=== PATIENT | female | born 1970 | race Caucasian/White ===

== ENCOUNTER 2023-07-28 10:33 | Outpatient (REF) | payer OTHER, SELFPAY ==
--- NOTE | ~2023-07-28 | XR_ITS ---
EXAMINATION: XR hand RT min 3V, XR hand LT min 3V CLINICAL INFORMATION: tenosynovitis COMPARISON: None TECHNIQUE: 3 views of the bilateral hands FINDINGS: LEFT HAND: No fracture or dislocation. Degenerative changes of the hand and wrist worst involving the first carpometacarpal joint where it is moderate with loss of joint space and subchondral cystic change and to a lesser extent the distal interphalangeal joints with degenerative spurring.. Soft tissues are unremarkable. RIGHT HAND: No fracture or dislocation. Mild degenerative changes of the distal interphalangeal and first metacarpophalangeal joints with degenerative spurring. No cortical erosion. Soft tissues are unremarkable. XR/XR hand LT min 3V IMPRESSION: 1. Moderate degenerative changes of the left hand and wrist. 2. Mild degenerative changes of the right hand.
--- NOTE | ~2023-07-28 | XR_ITS ---
EXAMINATION: XR hand RT min 3V, XR hand LT min 3V CLINICAL INFORMATION: tenosynovitis COMPARISON: None TECHNIQUE: 3 views of the bilateral hands FINDINGS: LEFT HAND: No fracture or dislocation. Degenerative changes of the hand and wrist worst involving the first carpometacarpal joint where it is moderate with loss of joint space and subchondral cystic change and to a lesser extent the distal interphalangeal joints with degenerative spurring.. Soft tissues are unremarkable. RIGHT HAND: No fracture or dislocation. Mild degenerative changes of the distal interphalangeal and first metacarpophalangeal joints with degenerative spurring. No cortical erosion. Soft tissues are unremarkable. XR/XR hand RT min 3V IMPRESSION: 1. Moderate degenerative changes of the left hand and wrist. 2. Mild degenerative changes of the right hand.
== END 2023-07-28 10:34 | disposition home or self-care (01) ==
LOC: HO.HOSX 10:33
PROVIDERS: Visit Provider Physical Medicine & Rehabilitation
DX: M65.4 Radial styloid tenosynovitis [de Quervain] (principal); M15.2 Bouchard's nodes (with arthropathy); G56.03 Carpal tunnel syndrome, bilateral upper limbs
CPT/HCPCS: 73130

== ENCOUNTER 2023-07-28 10:33 | Outpatient (AMB) | payer OTHER, SELFPAY ==
--- NOTE | 2023-07-28 10:39 | A.OFFVIS_ITS ---
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 Patient reports that she has had pain at the base of the thumb in both of her hands for many years now. The pain radiates from the base of the thumb to the elbow. She reports that she has significant weakness of the thumbs. The left hand is worse than the right. Denies numbness and tingling. No previous treatmnet. Allergies No Known Allergies Allergy (Verified 07/28/23 10:42) Medication List - Last Reconciled 07/28/23 by Trista García MD dextroamphetamine-amphetamine 20 mg ER (Adderall XR) 40 mg PO QDAY levothyroxine 125 mcg PO DAILY lisinopril 5 mg PO DAILY HPI HPI Comments History of Present Illness Details Chronic hand pain, pointing to base of thumb, left worse than right, but she is right handed. 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 Occasional numbness on base of thumb, none of fingertips. Drops things. Denies locking of thumb. 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, bilateral Surgical History (Updated 07/28/23 @ 10:45 by Yulissa Nielson CMA) Previous back surgery H/O: hysterectomy H/O thyroidectomy Social History (Updated 07/28/23 @ 10:45 by Yulissa Nielson CMA) Patient Tobacco Use Status: Never used Tobacco Current occupational status: employed Current occupation: Office Work - [employer] Review of Systems Const All systems reviewed & are unremarkable except as noted in HPI and below Physical Exam Vital Signs: BMI result Body Mass Index 24.9 Constitutional: Patient appears to be in no acute distress, well nourished and well developed. MSK: Inspection reveals appropriate head and neck positioning. Hawkin's test is negative. No joint effusion noted. No deformity noted. No intrinsic hand weakness noted. No atrophy noted. Twyla test mildly positive bilateral. Carpal compression test positive on wrist bilateral. Tinel sign positive at both wrists and elbows bilateral. Tender on left CMC joint. Dmitry nodes on DIP 2nd digit bilateral. Strength is 5/5 in all muscle groups tested. No increased tone noted. Neurological: Neurologic examination of the upper and lower extremities was nonfocal with intact sensation, muscle stretch reflexes and without focal motor deficits . Holder?s negative bilaterally. Gait is non-antalgic without loss of balance. Assessment & Plan Assessment & Plan (1) De Quervain's tenosynovitis, bilateral: Code(s): M65.4 - Radial styloid tenosynovitis [de Quervain] (2) Dmitry nodes (DJD hand): Code(s): M15.2 - Dmitry's nodes (with arthropathy) (3) Carpal tunnel syndrome on both sides: Code(s): G56.03 - Carpal tunnel syndrome, bilateral upper limbs Plan We will schedule her for EMG to rule out Carpal Tunnel Syndrome. Hand x-rays today to rule out DJD. Suspect de Quervain tenosynovitis as well, will put her on thumb spica splint. Assessment and plan discussed with patient, and patient was agreeable. All questions were answered thoroughly. Trista García MD, RENETTA Board Certified, [place] [employer] and Rehabilitation (ABPMR) Board Certified, [place] Board [employer] Electro[employer]ostic [employer] (ABEM) Orders: Orders NE nerve conduction velocity Today G56.03 - Carpal tunnel syndrome, bilateral upper limbs XR hand LT min 3V Today M15.2 - Dmitry's nodes (with arthropathy), M65.4 - Radial styloid tenosynovitis [de Quervain] NE electromyogram (EMG) Today G56.03 - Carpal tunnel syndrome, bilateral upper limbs XR hand RT min 3V Today G56.03 - Carpal tunnel syndrome, bilateral upper limbs, M15.2 - Dmitry's nodes (with arthropathy), M65.4 - Radial styloid tenosynovitis [de Quervain] Coding Level of Care Code New Pt Level 4 (72666) Diagnoses De Quervain's tenosynovitis, bilateral M65.4 Dmitry nodes (DJD hand) M15.2 Carpal tunnel syndrome on both sides G56.03
[2023-07-28 10:41] VITALS: BMI 24.9
== END 2023-07-28 11:23 | disposition home or self-care (01) ==
PROVIDERS: Visit Provider Physical Medicine & Rehabilitation
DX: M65.4 Radial styloid tenosynovitis [de Quervain] (principal); M15.2 Bouchard's nodes (with arthropathy); G56.03 Carpal tunnel syndrome, bilateral upper limbs
CPT/HCPCS: 99204

== ENCOUNTER 2023-07-30 15:01 | Outpatient (REF) | payer OTHER, SELFPAY ==
--- NOTE | 2023-07-30 15:09 | EMG_ITS ---
Chief complaint: Wrist/hand pain bilateral Reason for referral: Evaluate for Carpal Tunnel Syndrome Procedure done: Bilateral upper extremities NCS/EMG Precautions and/or limitations: None The limb temperature was monitored continuously and remained between 32-36 degrees C during the performance of the NCS. Nerve Conduction Studies Anti Sensory Summary Table ?Stim Site NR Onset (ms) Norm Onset (ms) Peak (ms) Norm Peak (ms) O-P Amp (?V) Norm O-P Amp Site1 Site2 Delta-0 (ms) Dist (cm) Avery (m/s) Norm Avery (m/s) Left Median Anti Sensory (2nd Digit) Wrist ? 3.1 3.5 <3.6 24.8 >10 Wrist 2nd Digit 3.1 14.0 45 Right Median Anti Sensory (2nd Digit) Wrist ? 2.5 3.0 <3.6 23.5 >10 Wrist 2nd Digit 2.5 14.0 56 Left Ulnar Anti Sensory (5th Digit) Wrist ? 2.8 3.0 <3.7 18.2 >15.0 Wrist 5th Digit 2.8 14.0 50 Right Ulnar Anti Sensory (5th Digit) Wrist ? 2.5 2.9 <3.7 27.6 >15.0 Wrist 5th Digit 2.5 14.0 56 Motor Summary Table ?Stim Site NR Onset (ms) Norm Onset (ms) O-P Amp (mV) Norm O-P Amp iAmp (mV) Amp (1st) (%) Site1 Site2 Delta-0 (ms) Dist (cm) Avery (m/s) Norm Avery (m/s) Left Median Motor (Abd Poll Brev) Wrist ? 3.4 <3.9 13.9 >4.5 17.1 100.0 Elbow Wrist 3.3 19.5 59 >45 Elbow ? 6.7 13.9 17.2 100.0 Right Median Motor (Abd Poll Brev) Wrist ? 3.1 <3.9 12.1 >4.5 14.5 100.0 Left Ulnar Motor (Abd Dig Minimi) Wrist ? 2.5 <3.0 7.4 >5 8.2 100.0 B Elbow Wrist 3.0 16.5 55 >45 B Elbow ? 5.5 6.9 8.1 93.2 A Elbow B Elbow 1.6 10.0 63 >45 A Elbow ? 7.1 6.3 7.4 85.1 Right Ulnar Motor (Abd Dig Minimi) Wrist ? 2.7 <3.0 6.9 >5 8.7 100.0 B Elbow Wrist 2.8 16.5 59 >45 B Elbow ? 5.5 6.8 8.4 98.6 A Elbow B Elbow 1.4 10.0 71 >45 A Elbow ? 6.9 7.7 10.3 111.6 Comparison Summary Table ?Stim Site NR Peak (ms) Norm Peak (ms) P-T Amp (?V) Site1 Site2 Delta-P (ms) Norm Delta (ms) Right Median/Radial Dig I Comparison (Digit 1 - 10cm) Median ? 2.6 <2.9 40.2 Median Radial 0.2 Radial ? 2.4 <2.8 19.0 EMG ?Side Muscle Nerve Root Ins Act Fibs Psw Amp Dur Poly Recrt Int Pat Comment Right 1stDorInt Ulnar C8-T1 Nml Nml Nml Nml Nml 0 Nml Complete Right FlexCarRad Median C6-7 Nml Nml Nml Nml Nml 0 Nml Complete Right Biceps Musculocut C5-6 Nml Nml Nml Nml Nml 0 Nml Complete Right Triceps Radial C6-7-8 Nml Nml Nml Nml Nml 0 Nml Complete Right Deltoid Axillary C5-6 Nml Nml Nml Nml Nml 0 Nml Complete Left 1stDorInt Ulnar C8-T1 Nml Nml Nml Nml Nml 0 Nml Complete Left FlexCarRad Median C6-7 Nml Nml Nml Nml Nml 0 Nml Complete Left Biceps Musculocut C5-6 Nml Nml Nml Nml Nml 0 Nml Complete Left Triceps Radial C6-7-8 Nml Nml Nml Nml Nml 0 Nml Complete Left Deltoid Axillary C5-6 Nml Nml Nml Nml Nml 0 Nml Complete FINDINGS: All motor and sensory nerves tested showed normal latencies, amplitudes and conduction velocities. Concentric needle EMG was performed in selected muscles of the bilateral upper extremities. Study did not reveal signs of electric abnormalities as shown in the table below. IMPRESSION: 1. This is a normal study. 2. There is no electrodiagnostic evidence for median neuropathy, ulnar neuropathy, brachial plexopathy, or cervical radiculopathy. Thank you for your kind referral. Trista García MD, RENETTA Board Certified, [place] [employer] and Rehabilitation (ABPMR) Board Certified, [place] [employer] Electrodiagnostic [employer] (ABEM) CODIN 82164 x2 MTDD
== END 2023-07-30 15:02 | disposition home or self-care (01) ==
LOC: HO.NEURO 15:01
PROVIDERS: PCP Internal Medicine; Visit Provider Physical Medicine & Rehabilitation
DX: G56.03 Carpal tunnel syndrome, bilateral upper limbs (principal)
CPT/HCPCS: 95886; 95911

== ENCOUNTER → 2023-07-30 15:09 | Outpatient (BNV) | payer OTHER, SELFPAY | PROVIDERS: PCP Internal Medicine; Visit Provider Physical Medicine & Rehabilitation | DX: M79.641 Pain in right hand (principal); M79.642 Pain in left hand | CPT/HCPCS: 95886; 95911 ==